=== PATIENT | male | born 1995 | race Caucasian/White ===

== ENCOUNTER 2019-02-16 21:17 | Emergency (ER) | payer BC ==
[~2019-02-16] VITALS: Ht 175.3 cm; Wt 78.0 kg
[2019-02-16 21:21] VITALS: BP 135/65; Ht 175.3 cm; Wt 78.0 kg
== END 2019-02-16 23:41 | disposition home or self-care (01) ==
LOC: ED 21:17
DX: S92.352A Displaced fracture of fifth metatarsal bone, left foot, initial encounter for closed fracture (principal); V87.8XXA Person injured in other specified noncollision transport accidents involving motor vehicle (traffic), initial encounter; Y93.89 Activity, other specified; Y92.410 Unspecified street and highway as the place of occurrence of the external cause; Y99.8 Other external cause status
CPT/HCPCS: J1885; Q0092